=== PATIENT | female | born 2000 | race Caucasian/White ===

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

== ENCOUNTER 2020-02-11 02:50 | Inpatient (IN) ==
[2020-02-11] MEDS ORDERED: Lactated Ringers 1000 ml BAG 1,000 ML IV ONE (04:30)
[2020-02-11] MEDS ORDERED: Penicillin G Potassium IV 5,000,000 UNITS in NS 0.9% 100 ml BAG 100 ML IVPB ONE (04:30)
[2020-02-11 04:58] LABS: Hematocrit 36 % (35-47); Hemoglobin 12.8 g/dL (12.0-16.0); Mean Corpuscular HGB Conc 36 g/dL (31-36); Mean Corpuscular Hemoglobin 32 pg (27-31); Mean Corpuscular Volume 90 fL (80-97); Mean Platelet Volume 9.4 fL (7.4-10.4); Platelet Count 279 10^3/uL (150-450); Red Blood Count 3.98 10^6 /uL (3.70-4.87); Red Cell Distribution Width 15 % (10-15); White Blood Count 9.2 10^3/uL (3.5-10.8)
[2020-02-11 04:59] LABS: Urine Benzodiazepine Screen None Detected (None Detect); Urine Cannabinoids Screen None Detected (None Detect); Urine Opiates Screen None Detected (None Detect)
[2020-02-11] MEDS ORDERED: Oxytocin in LR 20 UNITS/1,000 ML BAG IVPB SCH (06:00)
[2020-02-11] MEDS ORDERED: Oxytocin in LR 20 UNITS/1,000 ML BAG IVPB ONE (06:09)
[2020-02-11] MEDS ORDERED: Morphine 10 MG/ML VIAL (1 ml) IV ONE ×2 (09:16→16:22)
[2020-02-11] MEDS ORDERED: Promethazine INJ(RESTRICTED) 25 MG/ML 1 ml VIAL IV ONE ×2 (09:17→16:26)
[2020-02-11] MEDS: Penicillin G Potassium IV 3,000,000 UNITS in NS 0.9% 100 ml BAG 100 ML IVPB SCH ×3 (09:31→17:28)
[2020-02-11] MEDS ORDERED: Lidocaine 2% JELLY 6 ML TOPICAL ONE (15:49)
[2020-02-12] MEDS ORDERED: Dibucaine 1% OINT 28.35 GM TUBE PR PRN (00:56)
[2020-02-12] MEDS ORDERED: Glycerin ADULT 2.4 gm SUPP PR PRN (00:56)
[2020-02-12] MEDS ORDERED: Witch Hazel PAD JAR TOPICAL PRN (00:56)
[2020-02-12] MEDS ORDERED: Lactated Ringers 1000 ml BAG 1,000 ML IV SCH (01:00)
[2020-02-12] MEDS ORDERED: Oxytocin in LR 20 UNITS/1,000 ML BAG IVPB SCH (01:00)
[2020-02-12] MEDS ORDERED: Lidocaine 1% VIAL 10 MG/ML VIAL ONE (04:44)
[2020-02-13] VITALS: BP 117/55
[2020-02-13 06:41] LABS: ABS Basophils 0.1 10^3/ul (0-0.2); ABS Eosinophils 0.2 10^3/ul (0-0.6); ABS Monocytes 0.8 10^3/ul (0-0.8); Eosinophil % 1.2 %; Hematocrit 30 % (35-47); Hemoglobin 10.3 g/dL (12.0-16.0); Lymphocyte % 23.3 %; Mean Corpuscular HGB Conc 35 g/dL (31-36); Mean Corpuscular Hemoglobin 32 pg (27-31); Mean Corpuscular Volume 91 fL (80-97); Mean Platelet Volume 8.7 fL (7.4-10.4); Platelet Count 246 10^3/uL (150-450); Red Blood Count 3.26 10^6 /uL (3.70-4.87); Red Cell Distribution Width 15 % (10-15)
[2020-02-13] MEDS ORDERED: Calcium Carb (TUMS) 500 mg CHEW TAB PO PRN (09:32)
== END 2020-02-13 19:26 | disposition home or self-care (01) | DRG 807 ==
LOC: MCHOBOUT 02:50 → MCHOB 04:05
PROVIDERS: ADMIT Midwife; ATTEND Midwife

== ENCOUNTER 2024-03-31 18:18 | Inpatient (IN) ==
[2024-03-31] MEDS: miSOPROStol 100 mcg TAB PO ONE (20:57)
[2024-03-31 22:00] LABS: Urine Benzodiazepine Screen None Detected (None Detect); Urine Cannabinoids Screen None Detected (None Detect); Urine Opiates Screen None Detected (None Detect)
[2024-04-01 05:52] LABS: ABS Eosinophils 0.1 10^3/uL (0.0-0.5); ABS Monocytes 0.7 10^3/uL (0.0-0.9); ABS Neutrophils 6.5 10^3/uL (1.5-7.6); ABS Nucleated RBC 0.01 10^3/ul; Eosinophil % 0.8 %; Hematocrit 33.6 % (35-45); Hemoglobin 12.3 g/dL (11.5-14.3); Lymphocyte % 21.6 %; Mean Corpuscular Hemoglobin 31.8 pg (27-33); Mean Corpuscular Hgb Conc 36.5 g/dL (31-36); Mean Corpuscular Volume 87.1 fL (80-97); Mean Platelet Volume 8.8 fL (7.5-11.2); Nucleated Red Blood Cells % 0.1 %/100WBC (0.0-0.8); Platelet Count 299 10^3/uL (150-450); Red Blood Count 3.86 10^6/uL (3.63-4.92); Red Cell Distribution Width 14.6 % (12-17); White Blood Count 9.3 10^3/uL (3.8-11.8)
[2024-04-01] MEDS: Lidocaine 1% VIAL 10 MG/ML 30 ML VIAL INJ PRN (07:31)
[2024-04-01] MEDS ORDERED: Glycerin ADULT 2.4 gm SUPP PR PRN (07:57)
[2024-04-01] MEDS ORDERED: Lactated Ringers 1000 ml BAG 1,000 ML IV SCH (08:00)
[2024-04-01] MEDS: Witch Hazel PAD JAR TOPICAL PRN (08:18)
[2024-04-01] MEDS: Dibucaine 1% OINT 28.35 GM TUBE PR PRN (08:18)
[2024-04-01] MEDS ORDERED: LEVOTHYROXINE PO SCH (09:00)
[2024-04-01] MEDS: Buffered Lidocaine 1% SYRIN 1 ml INTRADERM ONE (15:06)
[2024-04-01] MEDS: Lactated Ringers 1000 ml BAG 1,000 ML IV ONE (15:06)
[2024-04-01] MEDS: Lactated Ringers 1000 ml BAG 1,000 ML IV SCH (15:07)
[2024-04-02 06:29] LABS: ABS Basophils 0.1 10^3/uL (0.0-0.1); ABS Eosinophils 0.1 10^3/uL (0.0-0.5); ABS Lymphocytes 2.1 10^3/uL (1.0-4.8); ABS Monocytes 0.7 10^3/uL (0.0-0.9); ABS Neutrophils 7.2 10^3/uL (1.5-7.6); Eosinophil % 0.9 %; Hematocrit 29.9 % (35-45); Hemoglobin 10.7 g/dL (11.5-14.3); Lymphocyte % 20.8 %; Mean Corpuscular Hemoglobin 31.5 pg (27-33); Mean Corpuscular Hgb Conc 35.8 g/dL (31-36); Mean Corpuscular Volume 88.2 fL (80-97); Mean Platelet Volume 8.5 fL (7.5-11.2); Platelet Count 260 10^3/uL (150-450); Red Blood Count 3.39 10^6/uL (3.63-4.92); Red Cell Distribution Width 14.7 % (12-17); White Blood Count 10.2 10^3/uL (3.8-11.8)
[2024-04-02 07:41] VITALS: BP 96/67
== END 2024-04-02 14:14 | disposition home or self-care (01) | DRG 560 ==
LOC: MCHOBOUT 18:18 → MCHOB 19:55
PROVIDERS: ADMIT Midwife; ATTEND Midwife